=== PATIENT | female | born 1960 | race Caucasian/White ===

== ENCOUNTER → 2016-09-01 | Outpatient (CLI) | payer BC ==
[~2016-09-01] MED LIST: AMLODIPINE BESYL5 MG PO; ASPIRIN81 M2 PO; FLEXERIL PO; MULTI VITAMIN1 EACH PO; NAPROXEN PO; PRILOSEC PO; SYNTHROID25 MCG PO; VITAMIN B650 M2 PO; VITAMIN D250000 UNIT PO
--- NOTE | ~2016-09-01 | CR186 ---
[facility] A Service of [facility] & [facility] RADIOLOGY TEXT RESULTS PATIENT: GABRIELLE OROZCO LOCATION: [facility] : 58 UNIT #: [id number] AGE: [address]: Ani Marquez MD SEX: F ORDER DR: [id number] [facility] [address] [place], [place] [address] [id number] O MR#: [id number] Acc #: [id number] NAME: GABRIELLE OROZCO : 1960 SEX: F STUDY DATE/TIME: 09/01/2016 14:49 UNIT: [facility] ROOM: STUDY DESCRIPTION: CR Lumbar Spine W Bend Min 6 V Attending Physician: Ani Marquez M.D. Referring Physician: Ani Marquez M.D. Ordering Physician: Ani Marquez M.D. Primary Care Physician: Ani Marquez M.D. MEDICAL IMAGING REPORT This report is preliminary unless electronic signature is present EXAM Lumbar spine series dated 09/01/2016 COMPARISON Lumbar spine series dated 06/05/2008 HISTORY Mid and low back pain for 2 years. FINDINGS 5 views of the lumbar spine along with lateral flexion extension views were obtained. There appears to be a 4.0-5.0 mm mild retrolisthesis of S1 with respect to L5. It appears to be slightly decreased in the extension lateral view when compared to the neutral view. The flexion view is relatively stable to slightly less in retrolisthesis when compared to the neutral view. No obvious fracture line is seen. Vertebral body and intervertebral disc heights are relatively intact. There are probably mild facet hypertrophic changes at the level of L4-5 and L5-S1. No obvious pars defects could be identified. No destructive bony mass is seen. Pre and paravertebral soft tissues do not demonstrate any significant abnormality. Depending on the clinical need, MRI of the lumbar spine can be obtained for further evaluation of not only the bony detail but also the soft tissues like canal stenosis, neural foraminal narrowing and cauda equina. Dictated by... Chithra Jaymie Ronald, M.D. THIS IS AN ELECTRONICALLY VERIFIED REPORT Shameka Cardenas M.D. at 09/03/2016 3:04 PM CPR/zarina [facility] A Service of [facility] & [facility] RADIOLOGY TEXT RESULTS PATIENT: GABRIELLE OROZCO [id number] : 58 UNIT #: [id number] AGE: [address]: Ani Marquez MD SEX: F ORDER DR: TD: 09/02/2016 10:36 JOB #: [id number] MEDICAL IMAGING REPORT Page 1 of 1 COPY
--- NOTE | ~2016-09-01 | CR243 ---
[facility] A Service of [facility] & [facility] RADIOLOGY TEXT RESULTS PATIENT: GABRIELLE OROZCO LOCATION: [facility] : 58 UNIT #: [id number] AGE: [address]: Ani Marquez MD SEX: F ORDER DR: [id number] [facility] [address] [place], [place] [address] [id number] O MR#: [id number] Acc #: [id number] NAME: GABRIELLE OROZCO. : 1960 SEX: F STUDY DATE/TIME: 09/01/2016 14:50 UNIT: [facility] ROOM: STUDY DESCRIPTION: CR Thoracic Spine 3 Views Attending Physician: Ani Marquez M.D. Referring Physician: Ani Marquez M.D. Ordering Physician: Ani Marquez M.D. Primary Care Physician: Ani Marquez M.D. MEDICAL IMAGING REPORT This report is preliminary unless electronic signature is present EXAM Thoracic spine series. INDICATION Mid and low back pain for 2 years. FINDINGS AP and lateral views of the thoracic spine were obtained. There is no fracture or destructive lesion. There is no significant degenerative change. IMPRESSION Normal thoracic spine series. Dictated by... Kuldip Justice M.D. THIS IS AN ELECTRONICALLY VERIFIED REPORT Kuldip Justice M.D. at 09/02/2016 6:08 AM DELPHINE/tatiana TD: 09/01/2016 21:10 JOB #: [id number] MEDICAL IMAGING REPORT Page 1 of 1 COPY
== END | disposition home or self-care (01) ==
LOC: CRAD 14:41
DX: M54.5 Low back pain (principal); G89.29 Other chronic pain
CPT/HCPCS: 72072; 72114

== ENCOUNTER → 2016-10-29 | Outpatient (CLI) | payer BC ==
--- NOTE | ~2016-10-29 | CR61 ---
[facility] A Service of [facility] & [facility] RADIOLOGY TEXT RESULTS PATIENT: GABRIELLE OROZCO LOCATION: [facility] : 58 UNIT #: [id number] AGE: [address]: Ani Marquez MD SEX: F ORDER DR: [id number] [facility] [address] [place], [place] [address] [id number] O MR#: [id number] Acc #: [id number] NAME: GABRIELLE OROZCO. : 1960 SEX: F STUDY DATE/TIME: 10/29/2016 13:00 UNIT: [facility] ROOM: STUDY DESCRIPTION: CR Cervical Spine Min 5 Views Attending Physician: Ani Marquez M.D. Referring Physician: Ani Marquez M.D. Ordering Physician: Ani Marquez M.D. Primary Care Physician: Ani Marquez M.D. MEDICAL IMAGING REPORT This report is preliminary unless electronic signature is present EXAM Cervical spine 5 views 10/29/2016 HISTORY Neck pain for 2 weeks with right upper extremity radiculopathy. No known injury. FINDINGS AP and lateral projections of the cervical spine show satisfactory preservation of the cervical lordosis. The cervical soft tissues are normal. All anterior and posterior elements in the cervical area are anatomically normal without identifiable fracture, dislocation, malignant lytic or sclerotic change, or arthritis. There is no congenital defect apparent. IMPRESSION Normal cervical spine. Dictated by... Wilmar Amin M.D. THIS IS AN ELECTRONICALLY VERIFIED REPORT Wilmar Amin M.D. at 10/31/2016 8:27 AM BILLY/landon TD: 10/30/2016 09:49 JOB #: [id number] MEDICAL IMAGING REPORT Page 1 of 1 COPY
== END | disposition home or self-care (01) ==
LOC: CRAD 12:32
DX: M54.12 Radiculopathy, cervical region (principal)
CPT/HCPCS: 72050

== ENCOUNTER → 2016-12-10 | Outpatient (CLI) | payer BC ==
--- NOTE | ~2016-12-10 | US5 ---
[facility] A Service of [facility] & [facility] RADIOLOGY TEXT RESULTS PATIENT: GABRIELLE OROZCO LOCATION: [facility] : 58 UNIT #: [id number] AGE: [address]: KARYN SUN APRN SEX: F ORDER DR: [id number] [place] [id number] O MR#: [id number] Acc #: [id number] NAME: GABRIELLE OROZCO. : 1960 SEX: F STUDY DATE/TIME: 12/10/2016 8:18 UNIT: [facility] ROOM: STUDY DESCRIPTION: US Abdominal Complete Attending Physician: Karyn Sun Np Referring Physician: Karyn Sun Np Ordering Physician: Karyn Sun Np Primary Care Physician: Ani Marquez M.D. MEDICAL IMAGING REPORT This report is preliminary unless electronic signature is present. EXAM Abdominal ultrasound complete 12/10/2016 HISTORY Right upper quadrant abdominal pain off and on for the past 4 weeks. FINDINGS The liver is homogeneous in echotexture and demonstrates no cystic or solid mass lesions. The intra- and extrahepatic bile ducts are not dilated. The gallbladder is normal with no evidence of cholelithiasis, wall thickening, or pericholecystic fluid. The common duct measures 3 mm. The pancreas and spleen are normal. The spleen measures 8.3 cm in greatest diameter. The visualized portions of the abdominal aorta and inferior vena cava are within normal limits. The kidneys are normal bilaterally. IMPRESSION Negative abdominal ultrasound. Dictated by... Wilmar Amin M.D. THIS IS AN ELECTRONICALLY VERIFIED REPORT Wilmar Amin M.D. at 12/11/2016 7:33 AM BILLY/landon TD: 12/10/2016 15:52 JOB #: [id number] MEDICAL IMAGING REPORT Page 1 of 1
== END | disposition home or self-care (01) ==
LOC: SGUS 07:56
DX: R10.11 Right upper quadrant pain (principal); R42 Dizziness and giddiness
CPT/HCPCS: 76700

== ENCOUNTER → 2017-01-13 | Outpatient (CLI) | payer BC ==
--- NOTE | ~2017-01-13 | US37 ---
[facility] A Service of [facility] & [facility] RADIOLOGY TEXT RESULTS PATIENT: GABRIELLE OROZCO LOCATION: [facility] : 58 UNIT #: [id number] AGE: [address]: Ani Marquez MD SEX: F ORDER DR: [id number] [address] [address] [id number] O MR#: [id number] Acc #: [id number] NAME: GABRIELLE OROZCO : 1960 SEX: F STUDY DATE/TIME: 01/13/2017 11:14 UNIT: [facility] ROOM: STUDY DESCRIPTION: US Carotid W/Doppler Bilateral Attending Physician: Ani Marquez M.D. Referring Physician: Ani Marquez M.D. Ordering Physician: Ani Marquez M.D. Primary Care Physician: Ani Marquez M.D. MEDICAL IMAGING REPORT This report is preliminary unless electronic signature is present. DATE OF EXAM 01/13/2017 REASON FOR EXAM Carotid stenosis. EXAMINATION Bilateral carotid Doppler. FINDINGS The right common internal and external carotid arteries are patent with no appreciable plaque or intimal thickening. Velocity of the common carotid artery is 72 cm/sec. Peak systolic velocity of the right proximal internal carotid artery is 69 cm/sec with an end-diastolic velocity of 26 cm/sec for an ICA:CCA ratio of 0.96. External carotid artery with a velocity of 84 cm/sec. The vertebral artery is visualized with antegrade flow. The left common internal and external carotid arteries are patent without plaque or intimal thickening. Velocity of the common carotid artery is 80 cm/sec. Peak systolic velocity of the left proximal internal carotid artery is 70 cm/sec, with an end-diastolic velocity of 26 cm/sec for an ICA:CCA ratio of 0.88. External carotid artery with a velocity of 78 cm/sec. The vertebral arteries are visualized with antegrade flow. IMPRESSION 1. Normal appearance without stenosis of the right and left internal carotid arteries. 2. No stenosis of the external carotid arteries. 3. Antegrade flow of the vertebral arteries. [facility] A Service of [facility] & [facility] RADIOLOGY TEXT RESULTS PATIENT: GABRIELLE OROZCO LOCATION: [facility] : 58 UNIT #: [id number] AGE: [address]: Ani Marquez MD SEX: F ORDER DR: Dictated by... Jonathon Hanson M.D. THIS IS AN ELECTRONICALLY VERIFIED REPORT Jonathon Hanson M.D. at 01/14/2017 6:35 AM LAURA/ambrosio TD: 01/13/2017 19:33 JOB #: [id number] MEDICAL IMAGING REPORT Page 1 of 1
== END | disposition home or self-care (01) ==
LOC: SNIV 09:49
DX: I65.29 Occlusion and stenosis of unspecified carotid artery (principal)
CPT/HCPCS: 93880